=== PATIENT | male | born 2000 | race African-American/Black ===

== ENCOUNTER 2024-08-04 14:19 | Emergency (ER) | payer MEDICAID ==
[~2024-08-04] VITALS: Ht 180.3 cm; Wt 98.3 kg
[2024-08-04] MEDS: LIDOcaine 1% W/epiNEPHrine 1:100,000 20ml vial SQ ONE (15:26)
--- NOTE | 2024-08-04 15:36 | Physician Documentation ---
History of Present Illness ~ Chief Complaint: Laceration Stated Complaint: LAC ON FINGER Time Seen by MD: 14:28 HPI This 24-year-old male who presents with a laceration to the tip of his right 5th finger not involving the nail, and reports that he was climbing down a houseboat ladder when he slipped and cut the finger. Patient reports no other injuries and reports no other acute symptoms or concerns. Patient reports Tdap in the last five years. Medication Reconciliation Allergies: Coded Allergies: No Known Allergies (Unverified , 08/04/24) Scheduled Cephalexin*Monohydrate* (Keflex*), 1 CAP PO Q6H Past Medical History Past Medical History: No Pertinent History Review of Systems ROS Laceration to right 5th finger as stated above in the HPI, otherwise all systems are reviewed and negative. Physical Exam Vital Signs: Temperature: 77.9, Source: Temporal, Heart Rate: 91, Respiratory Rate: 15, BP: 126/74, Pulse Oximetry: 97, Weight: 98.300 Physical Exam VITALS: Reviewed and as above. GENERAL: Alert, nontoxic appearing, no apparent distress. RESPIRATORY: No increased work of breathing, no respiratory distress, speaking in full clear sentences: SKIN: 1.5 cm crescent shaped avulsion to the pad of right 5th finger Procedures Laceration/Wound Repair Laceration : Location: Right 5th finger Length (cm): 1.5 Anesthesia: Lidocaine w/ Epi Volume Anesthetic (mls): 4 Prep: irrigated by nurse, scrubbed Margins: revised Foreign Body: not identified Repaired: skin Wound Repaired With: sutures Suture Size/Type: 5-0 Number of Superficial Sutures: 9 Layer Closure?: No Dressing Applied: simple, gauze, non-adherent Procedure Note Digital block performed achieving good anesthesia Progress Results/Orders Results/Orders Orders - MONICA THOMAS Laceration/I&D Tray Set Up (08/04/24 15:09) Wound Care Orders (08/04/24 15:09) Completed Orders - MONICA THOMAS Lidocaine 1% W/Epi 1:100,000 (Xylocaine (08/04/24 15:10) Vital Signs 08/04/24 08/04/24 14:20 16:49 Temp 77.9 97.9 Pulse 91 70 Resp 15 16 B/P (MAP) 126/74 129/68 Pulse Ox 97 99 Medical Decision Making Findings This 24-year-old presented with a crescent shaped shallow avulsion of the pad of the right 5th finger due to slipping while climbing on a metal ladder, the patient reported no other injuries and the avulsion was amenable to repair. Finger was anesthetized and given the injury was several hours old was thoroughly irrigated and scrubbed by nursing staff prior to my inspection, there appeared to be no retained foreign body and tissue avulsion appear to be viable, the avulsion was repaired with simple interrupted sutures without complication and dressed by nursing staff. Patient appropriate for outpatient follow up. Patient provided follow up instructions, return to care precautions, and home care instructions which he verbalized understanding of. Due to the delayed closure of the wound patient was placed on a five day course of prophylactic antibiotics. Differential Dx:Considerations: Include: Abrasion, Contusion, Laceration, Fracture, Hematoma, Neurovascular injury, Retained foreign body Departure Disposition: HOME / SELF CARE / HOMELESS Impression: Primary Impression: Avulsion of finger tip Qualified Codes: S61.209A - Unspecified open wound of unspecified finger without damage to nail, initial encounter Discharge Instructions: Laceration Care, Adult, [id number] Additional Instructions: Keep the area clean dry and covered. Do not soak the injury or go swimming. If the dressing on the wound becomes wet or soiled please replace it. Please change the dressing at least once a day. Please follow up with your primary care provider and/or [facility] in the next few days for wound recheck. You will need to return to the medical provider of your choice (including student health, urgent care, an emergency department, or a primary care provider) for suture removal in 7-10 days. Please return to the emergency department for any new or worsening concerning symptoms. Referrals: NO PRIMARY CARE PROVIDER (PCP) Prescriptions Cephalexin*Monohydrate* (Keflex*) 500 Mg Capsule 1 CAP PO Q6H for 5 Days, #20 CAP Prov: MONICA THOMAS 08/04/24 Education Educated: Patient Educated regarding: diagnosis, treatment, prognosis, need for follow up Signature Scribe Signature: No scribe Attestation: The note accurately reflects work and decisions made by me.LIAM East 08/05/24 01:54 MONICA THOMAS August 04, 2024 15:36
[2024-08-04] MEDS ORDERED: CEPH-585 PO (16:25)
[2024-08-04 16:49] VITALS: BP 129/68; PULSE 70; RESP 16; TEMP 97.9; O2SAT 99
== END 2024-08-04 16:48 | disposition home or self-care (01) ==
LOC: ER 14:20
DX: S61.216A Laceration without foreign body of right little finger without damage to nail, initial encounter (principal); W01.0XXA Fall on same level from slipping, tripping and stumbling without subsequent striking against object, initial encounter; Y93.39 Activity, other involving climbing, rappelling and jumping off; Y92.89 Other specified places as the place of occurrence of the external cause; Y99.8 Other external cause status
CPT/HCPCS: 12001; 99283; A6449